=== PATIENT | female | born 1990 | race Caucasian/White ===

== ENCOUNTER 2019-09-20 13:11 | Observation (INO) | payer OTHER, SELFPAY ==
[2019-09-20 13:15] VITALS: BP 117/88; PULSE 96; RESP 16; TEMP 36.4; O2SAT 98; BMI 27.4
--- NOTE | 2019-09-20 13:23 | CT_ITS ---
WS: [id number] CT kidney stone 34227 REASON FOR EXAM: right flank pain, pmh of kidney stones IV CONTRAST ADMINISTERED: None. TOTAL EXAM DLP: 1285.[address] scans at [facility] use at least one of these dose optimization techniques: automat ed exposure control; mA and/or kV adjustment per patient size (includes targeted exams where dose is matched to clinical indication); or iterative reconstruction. FINDINGS: The right kidney shows hydronephrosis and hydroureter ureter that extends down to approxima tely 5 cm above the bladder were 2 stones are evident 1 measured 0.27 cm and the other measures 10.04 mm. The upper abdomen shows normal liver, pancreas, stomach, spleen, adrenal glands, aorta and inferior v liam cava. The left kidney was normal. In the pelvis a cyst is seen on the left ovary measures 2.[address]/CT kidney stone 22022 IMPRESSION: Obstructive uropathy with hydronephrosis hydroureter on the right with 2 large stones seen in the distal right ureter Left ovarian cyst measures 2.47 cm.
--- NOTE | 2019-09-20 13:26 | ED_ITS ---
HPI - Abdominal Pain General: Chief Complaint: Abdominal Pain Stated Complaint: flank pain, n/v Time Seen by Provider: 09/20/19 13:19 History of Present Illness: HPI narrative: Patient is a 29-year-old female who comes to the ED with right flank pain. Patient has had kidney stones in the past and has had tubes tied. Patient says pain feels identical to past kidney stones. Severe right flank pain started around 10 AM this morning. Pain is localized to the right upper lumbar region of back. She rates pain a 10 out of 10. She also had an onset of nausea and vomiting due to the pain. Denies any dysuria, hematuria, constipation, diarrhea, blood in the stool. Associated Symptoms: Reports nausea and vomiting; Denies chills, constipation, diarrhea, dysuria, fever(s), hematochezia and hematuria Related Data: Date of Last Menstrual Period: 09/10/19 Review of Systems 2 Const: Denies: fever, chills or fatigue Eyes: Denies: change in vision or eye discomfort ENMT: Denies: throat pain, painful swallowing, nasal discharge or nasal congestion Card: Denies: chest pain, palpitations, edema, swelling of feet/ankles, shortness of breath on exertion or shortness of breath when lying down Resp: Denies: shortness of breath, productive cough or non-productive cough GI: Reports: nausea and vomiting; Denies: abdominal pain, diarrhea, constipation or blood in stool : Reports: flank pain; Denies: painful urination or blood in urine Musc: Denies: neck pain, back pain or extremity swelling Skin/Breast: Denies: rash or new lesion Neuro: Denies: headache, numbness in extremities or weakness in extremities PFS ED PFSH: Surgical History (Updated 09/20/19 @ 17:34 by Juan Thomas MD) History of tubal ligation Family History (Updated 09/20/19 @ 17:35 by Juan Thomas MD) Denies family history of Anesthesia complication Social History (Updated 09/20/19 @ 17:35 by Juan Thomas MD) Smoking and tobacco status: never smoked Marital status: Number of children: 3 Current occupational status: employed Current occupation: [employer] Female Reproductive History: Date of last menstrual period: 09/10/19 Physical Exam Narrative: EXAM NARRATIVE: Patient is a 29-year-old female that is laying on exam bed monitor the room. She appeared to be in pain and was constantly moving and repositioning herself. Const: COMMON NORMALS: oriented x3 HENMT: COMMON NORMALS: normocephalic HEAD & SCALP: normocephalic MOUTH: oral and palatal mucosa normal THROAT: posterior oropharynx normal and uvula midline Eye: COMMON NORMALS: PERRL PUPIL: Yes PERRL Neck/C-Spine: COMMON NORMALS: supple GENERAL: Yes normal visual inspection Resp: COMMON NORMALS: normal respiratory effort, no retractions, no use of accessory muscles and clear to auscultation bilaterally AUSCULTATION: clear to auscultation bilaterally Cardio: COMMON NORMALS: regular rate, regular rhythm, S1 normal heart sound, S2 normal heart sound, no gallops, no clicks, no murmurs and peripheral pulses 2+ throughout RATE: regular rate RHYTHM: regular rhythm HEART SOUNDS: S1 normal and S2 normal PERIPHERAL PULSES: pulses 2+ throughout GI: COMMON NORMALS: normal to inspection, nondistended, normoactive bowel sounds, soft to palpation and no masses PALPATION: Yes soft and Yes tender (mild tenderness on the RLQ) : BLADDER/KIDNEY EXAM: Yes CVA tenderness on the right (moderate) Back/Pelvis: GENERAL BACK: Yes CVA tenderness Extremity: COMMON NORMALS: normal to inspection and no pedal edema Neuro: COMMON NORMALS: oriented x3 GAIT: Yes normal gait Skin: COMMON NORMALS: no rashes or lesions noted GENERAL SKIN EXAM: no rashes or lesions noted and dry skin Course Reevaluation(s): Reevaluation #1: Patient was given morphine first for pain management and her 9 out of 10 pain remained unchanged. After CT scans and verification that stone is close to the bladder I ordered IV Toradol. After IV Toradol patient's pain is now a 1 out of 10. Consultations: Consultation #1: I spoke with Dr. Thomas about patient's case, and particularly the CT findings of a 10 mm stone, elevated white blood cell count of 15.7 and UA with positive nitrates, 3+ bacteria and 80+ white blood cells. Dr. Thomas sent patient need to be admitted and that I need to keep her n.p.o. while here in the ED. He also stated that he did not come by the ED to see patient today. Vital Signs: Vital signs: Vital Signs Temperature 97.6 F 09/21/19 15:52 Pulse Rate 79 09/21/19 15:52 Respiratory Rate 20 H 09/21/19 15:52 Blood Pressure 110/77 09/21/19 15:52 Pulse Oximetry 100 09/21/19 15:52 MDM - Abdominal Pain MDM Narrative: Medical decision making narrative: Patient is a 29-year-old female who comes to the ED with right flank pain. She has a past medical history of kidney stones. CBC and CMP were unremarkable. UA showed positive nitrates, 80+ white blood cells, 10+ RBCs and 4+ bacteria. CT abdomen to check for kidney stone was performed and an obstructive kidney stone located in the right ureter measuring 10 mm with hydronephrosis of the right kidney. Patient was given a dose of IV Rocephin while here in the ED. Her pain was controlled with Toradol and she was given IV fluids and tamsulosin as well. I contacted Dr. Thomas and he recommended admitting patient, since that size of stone will not pass on its own. Dr. Alonzo handled the admitting orders. Lab Data: Attestation: I reviewed the patient's lab results. Labs: Lab Results 09/20/19 09/20/19 09/20/19 Range/Units 13:30 13:30 14:33 WBC 15.7 H (4.0-10.0) 10^3/ uL RBC 4.66 (4.1-5.3) 10^6/u L Hgb 13.0 (11.5-15.3) g/dL Hct 40.4 (37.0-47.0) % MCV 86.7 (81-99) fL MCH 27.9 L (28.0-34.0) pg MCHC 32.2 (30.0-36.0) g/dL RDW 13.2 (12.1-15.1) % Plt Count 333 (130-400) 10^3/c mm MPV 10.2 (7.4-10.4) fL Neut % (Auto) 81.9 % Lymph % (Auto) 11.7 % [place] % (Auto) 5.5 % Eos % (Auto) 0.3 % Baso % (Auto) 0.3 % Neut # (Auto) 12.9 H (1.8-7.7) 10^3/u L Lymph # (Auto) 1.8 (0.8-4.8) 10^3/u L [place] # (Auto) 0.9 (0.2-0.9) 10^3/u L Eos # (Auto) 0.1 (0.0-0.8) 10^3/u L Baso # (Auto) 0.0 (0.0-0.1) 10^3/u L Nucleated RBC % (a uto) 0 % Nucleated RBCs # 0.0 /100WBC Sodium 138 (136-145) mmol/L Potassium 3.5 (3.5-5.1) mmol/L Chloride 102 (98-107) mmol/L Carbon Dioxide 23 (22-29) mmol/L Anion Gap 16.5 (5-19) BUN 10 (6-20) mg/dL Creatinine 0.7 (0.5-0.9) mg/dL GFR Calculation 99.6 (90-130) mL/min Glucose 134 H (65-115) mg/dL Calculated Osmolal ity 284 L (285-295) mOsm/k g Calcium 8.8 (8.5-10.5) mg/dL Total Bilirubin 0.4 (0.15-1.2) mg/dL AST 14 (0-32) U/L ALT 12 (0-33) U/L Alkaline Phosphata se 74 (35-105) IU/L Total Protein 7.1 (6.6-8.7) g/dL Albumin 4.3 (3.5-5.2) g/dL Globulin 2.8 (1.3-4.6) g/dL HCG, Qual (Negative) Urine Color Yellow (Yellow) Urine Appearance Hazy A (CLEAR) Urine pH 5 (5-7) Ur Specific Gravit y 1.025 (1.005-1.030) Urine Protein 1+ H (Negative) Urine Glucose (UA) Norm (Normal) Urine Ketones 2+ H (Negative) Urine Blood 2+ H (Negative) Urine Nitrate Positive H (Negative) Urine Bilirubin Neg (NEGATIVE) Urine Urobilinogen Norm (Negative) mg/dL Ur Leukocyte Gwen ase 2+ H (Negative) Urine RBC 10-15 H (0-2) /hpf Urine WBC 80-100 H (0-5) /hpf Ur Squamous Epith Cells 0-4 H (0-5) Urine Bacteria 3+ H (NONE) Urine Mucus 1+ 09/20/19 Range/Units 14:33 WBC (4.0-10.0) 10^3/ uL RBC (4.1-5.3) 10^6/u L Hgb (11.5-15.3) g/dL Hct (37.0-47.0) % MCV (81-99) fL MCH (28.0-34.0) pg MCHC (30.0-36.0) g/dL RDW (12.1-15.1) % Plt Count (130-400) 10^3/c mm MPV (7.4-10.4) fL Neut % (Auto) % Lymph % (Auto) % [place] % (Auto) % Eos % (Auto) % Baso % (Auto) % Neut # (Auto) (1.8-7.7) 10^3/u L Lymph # (Auto) (0.8-4.8) 10^3/u L [place] # (Auto) (0.2-0.9) 10^3/u L Eos # (Auto) (0.0-0.8) 10^3/u L Baso # (Auto) (0.0-0.1) 10^3/u L Nucleated RBC % (a uto) % Nucleated RBCs # /100WBC Sodium (136-145) mmol/L Potassium (3.5-5.1) mmol/L Chloride (98-107) mmol/L Carbon Dioxide (22-29) mmol/L Anion Gap (5-19) BUN (6-20) mg/dL Creatinine (0.5-0.9) mg/dL GFR Calculation (90-130) mL/min Glucose (65-115) mg/dL Calculated Osmolal ity (285-295) mOsm/k g Calcium (8.5-10.5) mg/dL Total Bilirubin (0.15-1.2) mg/dL AST (0-32) U/L ALT (0-33) U/L Alkaline Phosphata se (35-105) IU/L Total Protein (6.6-8.7) g/dL Albumin (3.5-5.2) g/dL Globulin (1.3-4.6) g/dL HCG, Qual Negative (Negative) Urine Color (Yellow) Urine Appearance (CLEAR) Urine pH (5-7) Ur Specific Gravit y (1.005-1.030) Urine Protein (Negative) Urine Glucose (UA) (Normal) Urine Ketones (Negative) Urine Blood (Negative) Urine Nitrate (Negative) Urine Bilirubin (NEGATIVE) Urine Urobilinogen (Negative) mg/dL Ur Leukocyte Gwen ase (Negative) Urine RBC (0-2) /hpf Urine WBC (0-5) /hpf Ur Squamous Epith Cells (0-5) Urine Bacteria (NONE) Urine Mucus Imaging Data ^: CT Abd/Pel: Attestation: I personally reviewed and interpreted this imaging study as follows: Radiologist's impression: [place] [address] CT Scan Report Signed Patient: Maryann Washburn Unit #: [id number] : 1990 Age/Sex: 29 / F ADM Date: 09/20/19 Loc: ER Room/Bed: Attending Dr: Ordering Provider/Ordering MD: Fer Virgen Date of Service: 09/20/19 Procedure(s): CT kidney stone 51078 Accession Number(s): [id number] Report Number: [id number] WS: [id number] CT kidney stone [id number] REASON FOR EXAM: right flank pain, pmh of kidney stones IV CONTRAST ADMINISTERED: None. TOTAL EXAM DLP: 1285.[address] scans at [facility] use at least one of these dose optimization techniques: automated exposure control; mA and/or kV adjustment per patient size (includes targeted exams where dose is matched to clinical indication); or iterative reconstruction. FINDINGS: The right kidney shows hydronephrosis and hydroureter ureter that extends down to approximately 5 cm above the bladder were 2 stones are evident 1 measured 0.27 cm and the other measures 10.04 mm. The upper abdomen shows normal liver, pancreas, stomach, spleen, adrenal glands, aorta and inferior vena cava. The left kidney was normal. In the pelvis a cyst is seen on the left ovary measures 2.[address]/CT kidney stone [id number] IMPRESSION: Obstructive uropathy with hydronephrosis hydroureter on the right with 2 large stones seen in the distal right ureter Left ovarian cyst measures 2.47 cm. Dictated By: Layton Vicente DO Signed By: Layton Vicente DO Signed Date/Time: 09/20/19 1413 DD/ 1406 Discharge Plan Discharge Patient Disposition: Admitted As Inpatient Admit Provider: Juan Thomas Condition: Stable Discharge Orders: Discharge Order (Routine); Ordered 09/21/19 Ordered By: Juan Thomas Referrals: Juan Thomas MD [Physician] - 10/01/19 7:30 am (Please come to [facility] main admissions to have a KUB done at 0730 after you will go over for your appointment with Dr. Thomas. Cystoscopy, ureteral stent removal KUB first) Patient Instructions: Ciprofloxacin (By mouth), Hydrocodone (By mouth), Kidney Stones (DC), Lithotripsy for Removal of Kidney Stones (DC), Renal Colic (GEN), Ureteral Stent Placement (DC), Hydronephrosis (DC) Additional Instructions: The stones were easily accessed and fragmented with laser lithotripsy. The right distal ureter where the stones were located was quite edematous and for that reason a stent was left indwelling. It should be safe to remove the stent late next week after healing. Typical symptoms related to the stent include urgency, frequency, urgency, right flank pain with urination, blood in the urine. These are common and are not dangerous. [id number] PYRIDIUM/Azo-Standard may be helpful if you have irritative symptoms related to the stent. Discharge Date/Time: 09/20/19 16:39 Coding Level of Care Code ED Adobe Architect for Chg Fwd Exam Comprehensive
[2019-09-20 13:39] LABS: Basophils % 0.3 %; Eosinophils # 0.1 10^3/uL (0.0-0.8); Eosinophils % 0.3 %; Hematocrit 40.4 % (37.0-47.0); Lymphocytes # 1.8 10^3/uL (0.8-4.8); Lymphocytes % 11.7 %; Mean Corpuscular HGB Conc 32.2 g/dL (30.0-36.0); Mean Corpuscular Hemoglobin 27.9 pg (28.0-34.0); Mean Corpuscular Volume 86.7 fL (81-99); Mean Platelet Volume 10.2 fL (7.4-10.4); Monocytes # 0.9 10^3/uL (0.2-0.9); Monocytes % 5.5 %; Neutrophils # 12.9 10^3/uL (1.8-7.7); Neutrophils % 81.9 %; Nucleated Red Blood Cells % 0 %; Platelet Count 333 10^3/cmm (130-400); Red Blood Count 4.66 10^6/uL (4.1-5.3); Red Cell Distribution Width 13.2 % (12.1-15.1); White Blood Count 15.7 10^3/uL (4.0-10.0)
[2019-09-20 13:41] VITALS: RESP 16
[2019-09-20] MEDS: sodium chloride 0.9% 1,000 ML 999 ML IV ×2 (13:41→15:16)
[2019-09-20] MEDS: morphine 4 mg/mL SDV 1 mL IVP (13:41)
[2019-09-20] MEDS: ondansetron 2 mg/ML SDV 2 mL 4 MG IVP ×2 (13:41→18:22)
[2019-09-20 13:54] LABS: Alanine Aminotransferase 12 U/L (0-33); Albumin Level 4.3 g/dL (3.5-5.2); Alkaline Phosphatase 74 IU/L (35-105); Anion Gap 16.5 (5-19); Aspartate Amino Transferase 14 U/L (0-32); Blood Urea Nitrogen 10 mg/dL (6-20); Calcium 8.8 mg/dL (8.5-10.5); Carbon Dioxide 23 mmol/L (22-29); Chloride 102 mmol/L (98-107); Globulin 2.8 g/dL (1.3-4.6); Glomerular Filtration Rate 99.6 mL/min (90-130); Glucose 134 mg/dL (65-115); Osmolality Calculated 284 mOsm/kg (285-295); Potassium 3.5 mmol/L (3.5-5.1); Sodium 138 mmol/L (136-145); Total Bilirubin 0.4 mg/dL (0.15-1.2); Total Protein 7.1 g/dL (6.6-8.7)
[2019-09-20] MEDS: ketorolac 30 mg/mL INJ IVP (14:16)
[2019-09-20] MEDS: tamsulosin 0.4 mg Capsule PO (14:16)
[2019-09-20 14:49] LABS: Glucose Urine UA Norm (Normal); Protein Urine 1+ (Negative); Specific Gravity, Urine 1.025 (1.005-1.030); Urine Appearance Hazy (CLEAR); Urine Color Yellow (Yellow); pH Urine 5 (5-7)
[2019-09-20 14:50] LABS: Bilirubin Urine Neg (NEGATIVE); Blood Urine 2+ (Negative); Ketones Urine 2+ (Negative); Leukocyte Esterase Urine 2+ (Negative); Nitrate Urine Positive (Negative); Urobilinogen Urine Norm (Negative)
[2019-09-20 14:52] LABS: Add Urine Culture? Yes; Bacteria Urine 3+; Mucus Urine 1+; Squamous Epithelial Cell Urine 0-4 (0-5); WBC Urine 80-100 /hpf (0-5)
[2019-09-20 15:00] LABS: HCG Qualitative Urine. Negative (Negative)
[2019-09-20] MEDS: cefTRIAXone 2,000 MG in sodium chloride 0.9% (plus) 50 ML 100 MG IV (15:16)
[2019-09-20 16:30] VITALS: BP 131/80; PULSE 103; RESP 20; TEMP 36.7; O2SAT 98
--- NOTE | 2019-09-20 16:31 | PM.HP ---
Providers/Chief Complaint Admitting Physician: Juan Thomas MD Primary Care Provider: Williams Choi MD Chief Complaint: flank pain, n/v History of Present Illness Maryann Washburn is a 29 year old female evaluated for the first time today after admission through the emergency department for severe right hydroureteronephrosis secondary to 2 large stones in her right distal ureter. Symptoms described below remind her of her previous stone episode. Acute pain in the right flank radiating down to the right lower quadrant was described as severe (10 out of 10) and beginning this morning. Could not find a comfortable position due to the pain. Associated with nausea and vomiting. Denied frequency urgency blood in the urine or UTI symptoms. No fever or chills. Work-up: UA showed evidence of UTI with 80-100 white cells, nitrite positive urine and bacteriuria. CT scan: 11 mm stone in the right distal ureter with a slightly smaller stone just proximal to that. Severely dilated ureter and pyelocalyceal system. This is a dramatic change from her previous CT scan in 2007 that showed neither stones or hydronephrosis. WBC: 15.7, creatinine 0.7. Normal liver functions. Despite the severity of the pain aggressive pain management control the symptoms. Concern for risk of obstructive pyelonephritis development led to the admission, IV antibiotics, and consideration for intervention sooner than later. In the absence of clinical sepsis currently I think it is reasonable to treat her infection and plan for cystoscopy and attempt at stone removal tomorrow after initiation of antibiotics. Can consider stent placement emergently for clinical deterioration. Review of Systems Const: Reports: malaise; Denies: fever or chills Eyes: Denies: change in vision Card: Denies: chest pain or palpitations Resp: Denies: shortness of breath, productive cough or non-productive cough GI: Reports: abdominal pain, nausea and vomiting; Denies: change in bowel habits : Reports: flank pain; Denies: difficulty urinating, painful urination, urinary frequency, urinary urgency or blood in urine Musc: Reports: back pain; Denies: neck pain Skin/Breast: Denies: rash or itching Neuro: Denies: headache, confusion or slurred speech Psych: Denies: anxiety Duc/Lymph: Denies: easy bruising, easy bleeding or enlarged lymph nodes Medications/Allergies Home Medications Medication Instructions Recorded Confirmed Last Taken Type No Known Home Medications 09/20/19 09/20/19 Unknown History Allergies Allergy/AdvReac Type Severity Reaction Status Date / Time No Known Allergies Allergy Verified 09/20/19 13:18 PFSH Acute PFSH: Surgical History (Updated 09/20/19 @ 17:34 by Juan Thomas MD) History of tubal ligation Family History (Updated 09/20/19 @ 17:35 by Juan Thomas MD) Denies family history of Anesthesia complication Social History (Updated 09/20/19 @ 17:35 by Juan Thomas MD) Smoking and tobacco status: never smoked Substance/Drug Use: never Marital status: Number of children: 3 Current occupational status: employed Current occupation: [employer] Female Reproductive History: Date of last menstrual period: 09/10/19 Vitals/I&O/Wt Last Vital Signs Temp 97.6 F 09/20/19 13:15 Pulse 96 09/20/19 13:15 Resp 16 09/20/19 13:41 BP 117/88 09/20/19 13:15 Pulse Ox 98 09/20/19 13:15 Weight last 48 hrs Weight 170 lb Physical Exam Const: COMMON NORMALS: no apparent distress, alert and well nourished GENERAL APPEARANCE: well kempt and well developed ORIENTATION/CONSCIOUSNESS: not confused HENMT: COMMON NORMALS: normocephalic and head/scalp atraumatic Eye: COMMON NORMALS: conjunctivae normal and no scleral icterus Neck/C-Spine: COMMON NORMALS: full ROM GENERAL: Yes normal visual inspection Resp: COMMON NORMALS: normal respiratory effort EFFORT & INSPECTION: No labored and No actively coughing AUSCULTATION: clear to auscultation bilaterally Cardio: COMMON NORMALS: regular rate, regular rhythm and no murmurs OTHER: No peripheral edema : OTHER: Bladder not distended Extremity: COMMON NORMALS: no clubbing, cyanosis or edema Neuro: COMMON NORMALS: no focal motor deficits SENSORIUM/ORIENTATION: Yes alert Psych: COMMON NORMALS: mental status grossly normal APPEARANCE: Yes grossly normal and Yes well kempt ATTITUDE: Yes calm and Yes engaged Skin: COMMON NORMALS: no rashes or lesions noted and no jaundice Data : 09/20/19 13:30 09/20/19 13:30 A&P Assessment and plan (1) Right distal ureteral calculus: Status: Acute (2) Hydronephrosis of right kidney: Status: Acute Attestations Medical Necessity Statement*: Uncontrolled pain, concern for potential obstructive pyelonephritis, large right distal ureteral stones unlikely to pass with evidence of failed conservative course given the degree of obstruction. Surgical intervention will be required Coding Level of Care Code Acute Manager Recruiting for [facility] Fwd Diagnoses Right distal ureteral calculus N20.1 Hydronephrosis of right kidney N13.30
[2019-09-20 16:38] VITALS: BP 148/79; PULSE 113; RESP 16; O2SAT 99
--- NOTE | 2019-09-20 16:41 | PC.NURSE ---
patient arrived on unit. Dr Thomas notified.
[2019-09-20] MEDS: sodium chlor 0.45% +KCl 20 mEq 20 MEQ/1,000 ML BAG 100 MEQ IV (18:21)
[2019-09-20 19:59] VITALS: BP 128/85; PULSE 111; RESP 16; TEMP 36.7; O2SAT 100
[2019-09-20 23:54] VITALS: BP 99/66; PULSE 96; RESP 16; TEMP 36.6; O2SAT 100
[2019-09-21] VITALS (16 sets, daily range): BP systolic 99–124; BP diastolic 54–94; PULSE 79–115; RESP 12–22; TEMP 36.2–36.8; O2SAT 97–100
--- NOTE | 2019-09-21 | SCC_ITS ---
Procedure Done: Cystoscopy, right retrograde ureteropyelogram Ureteroscopy, laser lithotripsy, stent (4.7 Japanese by 28 cm double-pigtail without string) 19.9 seconds of fluoroscopic guidance, for a cumulative dose of 4.31 mGy, was provided to Dr. Thomas by the radiology department. C-arm images of the abdomen were saved for the patient's permanent record. [facility]
--- NOTE | 2019-09-21 | SC_ITS ---
WS: [id number] INTRAOPERATIVE TECHNIQUE: 2 Spot fluoroscopic images for intraoperative purposes. FLUOROSCOPY TIME: 18.9 seconds CLINICAL INFORMATION: STENT, STONE REMOVAL COMPARISON: None. FINDINGS: Images obtained for intraoperative purposes. Right proximal double-J ureteral stent visualized. Dista l stent not included. SC/C-arm FL for Urology IMPRESSION: Images obtained for intraoperative purposes.
[2019-09-21] MEDS: sodium chlor 0.45% +KCl 20 mEq 20 MEQ/1,000 ML BAG 100 MEQ IV (01:06)
[2019-09-21] MEDS: cefTRIAXone 1,000 MG in sodium chloride 0.9% (plus) 50 ML 100 MG IV ×2 (03:59→15:25)
--- NOTE | 2019-09-21 06:00 | XR_ITS ---
WS: [id number] ABDOMEN: SUPINE FILM HISTORY: Right distal ureteral stones COMPARISON: 09/20/2019 and 07/23/2008 Normal bowel gas pattern. No osseous abnormality other than RIGHT sacroiliitis. Right kidney: No RIGHT renal calcifications. Cluster of calcifications in the distal RIGHT ureter. Th e entire cluster measures 2.2 x 0.7 cm. This is several adjacent calcifications in the distal ureter with no progression since 09/20/2019. Left kidney: No renal or ureteral stone identified. XR/XR KUB [id number] IMPRESSION: Cluster of calcifications in the distal RIGHT ureter measures 2.2 x 0.7 cm. No inferior migration.
[2019-09-21 08:00] LABS: Anion Gap 15.7 (5-19); Basophils % 0.3 %; Blood Urea Nitrogen 3 mg/dL (6-20); Calcium 8.3 mg/dL (8.5-10.5); Carbon Dioxide 22 mmol/L (22-29); Chloride 103 mmol/L (98-107); Eosinophils # 0.1 10^3/uL (0.0-0.8); Eosinophils % 0.6 %; Glomerular Filtration Rate 146.9 mL/min (90-130); Glucose 85 mg/dL (65-115); Hematocrit 36.2 % (37.0-47.0); Hemoglobin 11.6 g/dL (11.5-15.3); Lymphocytes # 1.9 10^3/uL (0.8-4.8); Lymphocytes % 21.6 %; Mean Corpuscular Volume 87.2 fL (81-99); Mean Platelet Volume 10.6 fL (7.4-10.4); Monocytes # 0.6 10^3/uL (0.2-0.9); Monocytes % 6.6 %; Neutrophils # 6.4 10^3/uL (1.8-7.7); Neutrophils % 70.7 %; Nucleated Red Blood Cells % 0 %; Osmolality Calculated 279 mOsm/kg (285-295); Platelet Count 271 10^3/cmm (130-400); Potassium 3.7 mmol/L (3.5-5.1); Red Blood Count 4.15 10^6/uL (4.1-5.3); Red Cell Distribution Width 13.1 % (12.1-15.1); Sodium 137 mmol/L (136-145)
--- NOTE | 2019-09-21 10:12 | PC.CHAP ---
Pastoral Care Encounter/Spiritual Assessment Type of Contact [] Declined screening technician visit [] Patient/Family/Request visit [] Outpatient visit [] Follow-up visit [] Physician referral [] Code/Alert [x] Routine visit [] Staff referral [] Actively dying [] Patient sleeping [] Family support [] [] Out of room [] Palliative care [] [] Receiving care in room [] Pre-surgical visit [] Trauma [] Long length of stay [] ICU visit [] Other: Relational/Emotional Strength [] Patient feels connected with others/family/visitors/staff [] Distress [] Loneliness/isolation [] Abandonment Spirituality of Patient [] Person of Opal [] Attends Gnosticism of their Opal [] Believes in Prayer [] Reads Bible or Confucianism materials [] There are Spiritual issues to be addressed Toe Stripper Interventions [x] Prayer [] Active listening [] Non-anxious presence [] Spiritual/emotional support [] Crisis/trauma care [] Spiritual counseling [] Bereavement support [] Provided bereavement packet [] Provided Bible/devotional materials [] Provided toy/stuffed animal, coloring book to patient or family member [] Provided Communion [] Anointing/[place] [] Salvation [x] Completed spiritual assessment [] Other: Impact on Illness or Injury [] Angry [] Fearful [] Anxious [] Often cries [] Exhaustion [] Unable to work [] Unable to attend voodoo [] Unable to walk/stand [] Unable to read [] Unable to drive [] Unable to eat/drink [] Unable to sleep [] Unable to be with family [] Patient intubated [] Other: Summary Patient feeling better Time spent with patient 5 min
--- NOTE | 2019-09-21 11:52 | P.ANESASSM_ITS ---
Pre-Anesthetic Assessment Pre-Anesthetic Assessment: Height/Weight: Height 1.68 m Weight 77.111 kg Temp Pulse Resp BP Pulse Ox 98.3 F 92 18 123/94 100 09/21/19 11:45 09/21/19 11:45 09/21/19 11:45 09/21/19 11:45 09/21/19 11:45 Preop Diagnosis: kidney stones Proposed Procedure: Operation Date: 09/21/19 12:00 Proposed Procedures p Cystoscopy, Right Retrograde Ureteroscopy, Laser, Stent(Right) - Juan Thomas MD s Laser Lithotripsy(Right) - Juan Thomas MD s Retrograde Pyelogram(Right) - Juan Thomas MD s Ureteral Stent Placement(Right) - Juan Thomas MD Familial anesthetic complications: none Last intake: Intake Last Liquid Date 09/21/19 Last Liquid Time 07:00 Last Solid Date 09/19/19 Last Solid Time 20:00 Social: Social History: No alcohol and No tobacco Exam: Pre-Anes Outpt Exam: alert, oriented x 3, clear to auscultation bilaterally and regular rate & rhythm Airway: Cervical ROM: WNL MP: 2 Dentition: Full Pulmonary: Pulmonary: None reported CV/HEM: CV/HEM: None reported : : None reported Hepatic: Hepatic: None reported GI: GI: None reported Metabolic: Metabolic: None reported Musc/skel: Musc/skel: None reported Neuropsych: Neuropsych: None reported Anesthetic Plan: ASA status: 1 Anesthesia: General Risk of > 500 ml blood loss (7ml/kg in children): No Meds/Allergies Current Medications: Current Medications Generic Name Dose Route Start Last Admin Trade Name Jac PRN Reason Stop Dose Admin Sodium Chloride 1,000 mls @ 150 m ls/hr 09/20/19 16:41 09/21/19 09:42 Sodium Chloride 0.9% IV Not Given .Q6H40M RUPERTO Ceftriaxone Sodium 1,000 mg/ 50 mls @ 100 mls/ hr 09/21/19 04:00 09/21/19 09:36 Sodium Chloride IV Infused Q12H RUPERTO Infusion Protocol Potassium Chloride /Sodium Chloride 20 meq in 1,000 m ls @ 100 mls/hr 09/20/19 17:30 09/21/19 04:30 Sodium Chlor 0.4 5% +Kcl 20 Meq IV 100 mls/hr .Q10H RUPERTO Infusion PFSH Anesthesia PFSH: Surgical History (Updated 09/20/19 @ 17:34 by Juan Thomas MD) History of tubal ligation Family History (Updated 09/20/19 @ 17:35 by Juan Thomas MD) Denies family history of Anesthesia complication Social History (Updated 09/20/19 @ 17:35 by Juan Thomas MD) Smoking and tobacco status: never smoked Marital status: Number of children: 3 Current occupational status: employed Current occupation: [employer] Female Reproductive History: Date of last menstrual period: 09/10/19 Data Anesthesia CBC & Chem 7: 09/21/19 07:22 09/21/19 07:22 Other Labs: Laboratory Results - last 48 hr 09/20/19 09/20/19 09/20/19 13:30 13:30 14:33 WBC 15.7 H RBC 4.66 Hgb 13.0 Hct 40.4 MCV 86.7 MCH 27.9 L MCHC 32.2 RDW 13.2 Plt Count 333 MPV 10.2 Neut % (Auto) 81.9 Lymph % (Auto) 11.7 [place] % (Auto) 5.5 Eos % (Auto) 0.3 Baso % (Auto) 0.3 Neut # (Auto) 12.9 H Lymph # (Auto) 1.8 [place] # (Auto) 0.9 Eos # (Auto) 0.1 Baso # (Auto) 0.0 Nucleated RBC % (auto) 0 Nucleated RBCs # 0.0 Sodium 138 Potassium 3.5 Chloride 102 Carbon Dioxide 23 Anion Gap 16.5 BUN 10 Creatinine 0.7 GFR Calculation 99.6 Glucose 134 H Calculated Osmolality 284 L Calcium 8.8 Total Bilirubin 0.4 AST 14 ALT 12 Alkaline Phosphatase 74 Total Protein 7.1 Albumin 4.3 Globulin 2.8 HCG, Qual Urine Color Yellow Urine Appearance Hazy A Urine pH 5 Ur Specific [place] 1.025 Urine Protein 1+ H Urine Glucose (UA) Norm Urine Ketones 2+ H Urine Blood 2+ H Urine Nitrate Positive H Urine Bilirubin Neg Urine Urobilinogen Norm Ur Leukocyte Esterase 2+ H Urine RBC 10-15 H Urine WBC 80-100 H Ur Squamous Epith Cells 0-4 H Urine Bacteria 3+ H Urine Mucus 1+ 09/20/19 09/21/19 09/21/19 14:33 07:22 07:22 WBC 9.0 RBC 4.15 Hgb 11.6 Hct 36.2 L MCV 87.2 MCH 28.0 MCHC 32.0 RDW 13.1 Plt Count 271 MPV 10.6 H Neut % (Auto) 70.7 Lymph % (Auto) 21.6 [place] % (Auto) 6.6 Eos % (Auto) 0.6 Baso % (Auto) 0.3 Neut # (Auto) 6.4 Lymph # (Auto) 1.9 [place] # (Auto) 0.6 Eos # (Auto) 0.1 Baso # (Auto) 0.0 Nucleated RBC % (auto) 0 Nucleated RBCs # 0.0 Sodium 137 Potassium 3.7 Chloride 103 Carbon Dioxide 22 Anion Gap 15.7 BUN 3 L Creatinine 0.5 GFR Calculation 146.9 H Glucose 85 Calculated Osmolality 279 L Calcium 8.3 L Total Bilirubin AST ALT Alkaline Phosphatase Total Protein Albumin Globulin HCG, Qual Negative Urine Color Urine Appearance Urine pH Ur Specific [place] Urine Protein Urine Glucose (UA) Urine Ketones Urine Blood Urine Nitrate Urine Bilirubin Urine Urobilinogen Ur Leukocyte Esterase Urine RBC Urine WBC Ur Squamous Epith Cells Urine Bacteria Urine Mucus Micro: Microbiology 09/20/19 14:33 Urine Culture - Preliminary Urine,Clean Catch Gram Negative Rods Cardiac Studies: No Data to Display
--- NOTE | 2019-09-21 11:58 | PM.OP ---
Operative Report Date of procedure: September 21, 2019 Pre-op Diagnosis: Large right distal ureteral stones with obstruction Post-op diagnosis: same Procedure Done: Cystoscopy, right retrograde ureteropyelogram Ureteroscopy, laser lithotripsy, stent (4.7 Maldivian by 28 cm double-pigtail without string) Specimens removed/disposition: Stone fragments Pathology: Stone fragments Surgeon: William Anesthesia: General Estimated blood loss: Minimal Urine output: Not measured Complications: None Findings: Stones in the expected position. Accessed with ureteroscopy and fragmented with laser lithotripsy. Fragments removed. Stent left indwelling. Condition: stable Disposition: PACU Brief History: Maryann is a very pleasant 29-year-old white female admitted last night through the emergency department for concern of obstructing right distal ureteral stones of longstanding nature based on the degree of hydronephrosis and also significant pyuria although no evidence of sepsis. Because of the concern of potential progression to obstructive pyelonephritis/sepsis it was decided to admit her, treat with antibiotics, and move toward either stenting or definitive stone treatment if possible today. She has remained afebrile since admission. She has received 2 doses of antibiotics. White count this morning is 9 and there is no evidence of hemodynamic instability. The plan was to go after the stones but it a very minimum obtain access and stenting. Procedure: After routine preoperative evaluation examination obtaining of informed consent she was taken to the operating suite on 09/21/2019 where general anesthesia was administered without difficulty after appropriate timeout was performed, SCDs confirmed to be functioning, preoperative therapeutic antibiotics administered, beta-humphrey protocol confirmed. Prepped and draped in usual sterile fashion in dorsolithotomy position pain careful attention to avoiding pressure points. 21 Maldivian cystoscope with 30 degree lens was introduced into the urethral meatus and advanced into the bladder under videoscopy. Bladder was systematically examined with both 30 and 70 degree lens. No stones were seen in the bladder. 8 Maldivian cone-tipped catheter intubate into the right ureteral orifice for right retrograde ureteropyelogram confirming normal distal ureter, the 2 large stones identified in the expected position with significant proximal ureteral dilation beyond the stones. Flexible tip guidewire was then advanced up the right ureter bypassing the stones. The ureter distal to the stones was then dilated with a 15 Maldivian 4 cm balloon with no waist at 4 amna of pressure. The balloon was removed the wire secured to the drapes as a safety wire and an offset semirigid ureteroscope was advanced next to the wire up the right ureter where the stones were encountered in the expected position and fragmented with a 550 ?m homing laser fiber into small enough pieces that were then easily removed with grasping forceps and parachute basket. Final passage of the scope showed no additional stone fragments. The ureter was edematous at the site where the stones were located and for that reason a stent was left indwelling. A 4.7 Maldivian by 28 cm double-pigtail stent was advanced over the guidewire through the cystoscope into appropriate position as confirmed via fluoroscopy. The bladder was drained. The pieces that of been dropped into the bladder were then flushed out of the bladder. On final inspection the stent was confirmed to be draining, no significant fragments remained in the bladder, and the procedure completed. Tolerated the procedure well without complications and was awakened in the operating room and returned to the care of in stable condition. PLANS: 1. Discharge from outpatient surgery today 2. Follow-up late next week for cystoscopy and stent removal.
[2019-09-21] MEDS: sodium chloride 0.9% 1,000 ML 30 ML IV (11:59)
[2019-09-21] MEDS: iohexol 300 mg/mL 50 mL Btl (OR ONLY) XX (12:48)
--- NOTE | 2019-09-21 13:09 | SUR.PHASEI ---
1305 PATIENT TO PACU AT THIS TIME FROM OR. RR EVEN AND UNLABORED. ORAL AIRWAY IN PLACE. SPO2 100% ON SIMPLE MASK AT 8L. PATIENT UNRESPONSIVE TO VERBAL STIMULI, PROTECTING AIRWAY.
--- NOTE | 2019-09-21 13:11 | SUR.PHASEI ---
1311 ORAL AIRWAY REMOVED AT THIS TIME. SPO2 100% ON SIMPLE MASK AT 8L.
--- NOTE | 2019-09-21 13:14 | PM.DCS ---
Discharge Providers Date of Admission: 09/20/19 15:29 Date of Discharge: September 21, 2019 Attending Provider at Admission: Juan Thomas MD Attending Provider at Discharge: Juan Thomas MD Primary Care Provider: Williams Choi MD Diagnoses at Discharge Discharge Diagnosis (1) Right distal ureteral calculus: Status: Acute Problem details: 2 large stones with chronic obstruction treated with endoscopy and laser lithotripsy temporary stent 09/21/2011. (2) Hydronephrosis of right kidney: Status: Acute Problem details: Secondary to large right distal ureteral stones. Reason for Visit Reason for Visit: Reason For Visit: flank pain, n/v Hospital Course Hospital Course: Admitted on 09/20/2019 with refractory pain and concern for possible UTI related to obstructing to moderate to large size right distal ureteral stones. She was treated with antibiotics x2 doses and then plan was to stent her or if possible treat the stones with endoscopic laser lithotripsy on 09/21/2019. Taken to the operating room in the afternoon of 09/21/2019 where laser lithotripsy was performed and all the stone fragments were removed. A temporary indwelling stent was left in place at the completion of the procedure (4.7 Chinese by 28 cm double-pigtail stent). She was sent back to the floor for recovery prior to discharge and did well. Discharged in stable condition with plans for follow-up on 10/01/2019 for cystoscopy and stent removal. Physical Exam Const: COMMON NORMALS: no apparent distress, alert and well nourished GENERAL APPEARANCE: well kempt and well developed ORIENTATION/CONSCIOUSNESS: not confused Resp: COMMON NORMALS: normal respiratory effort EFFORT & INSPECTION: No labored and No actively coughing Neuro: SENSORIUM/ORIENTATION: Yes alert Psych: COMMON NORMALS: mental status grossly normal APPEARANCE: Yes grossly normal and Yes well kempt ATTITUDE: Yes calm and Yes engaged Discharge Data Data Completed and Pending: Completed Studies During Hospitalization Category Date Time Status CT kidney stone 7 4176 Urgent Cat Scan 09/20/19 13:23 Completed XR KUB 13545 Rout ine Exams 09/21/19 06:00 Completed Pending at discharge Category Date Time Status Stone Analysis Ro utine Lab 09/21/19 12:52 Ordered Urine Culture Sta t Lab 09/20/19 14:33 Results Pathology: Surgic al [PTH] Routine Pth 09/21/19 12:54 Ordered Labs from last 24 hours 09/21/19 09/21/19 09/20/19 07:22 07:22 14:33 WBC 9.0 RBC 4.15 Hgb 11.6 Hct 36.2 L MCV 87.2 MCH 28.0 MCHC 32.0 RDW 13.1 Plt Count 271 MPV 10.6 H Neut % (Auto) 70.7 Lymph % (Auto) 21.6 [place] % (Auto) 6.6 Eos % (Auto) 0.6 Baso % (Auto) 0.3 Neut # (Auto) 6.4 Lymph # (Auto) 1.9 [place] # (Auto) 0.6 Eos # (Auto) 0.1 Baso # (Auto) 0.0 Nucleated RBC % (a uto) 0 Nucleated RBCs # 0.0 Sodium 137 Potassium 3.7 Chloride 103 Carbon Dioxide 22 Anion Gap 15.7 BUN 3 L Creatinine 0.5 GFR Calculation 146.9 H Glucose 85 Calculated Osmolal ity 279 L Calcium 8.3 L Total Bilirubin AST ALT Alkaline Phosphata se Total Protein Albumin Globulin HCG, Qual Negative Urine Color Urine Appearance Urine pH Ur Specific [place] y Urine Protein Urine Glucose (UA) Urine Ketones Urine Blood Urine Nitrate Urine Bilirubin Urine Urobilinogen Ur Leukocyte [place] Urine RBC Urine WBC Ur Squamous Epith Cells Urine Bacteria Urine Mucus 09/20/19 09/20/19 09/20/19 14:33 13:30 13:30 WBC 15.7 H RBC 4.66 Hgb 13.0 Hct 40.4 MCV 86.7 MCH 27.9 L MCHC 32.2 RDW 13.2 Plt Count 333 MPV 10.2 Neut % (Auto) 81.9 Lymph % (Auto) 11.7 [place] % (Auto) 5.5 Eos % (Auto) 0.3 Baso % (Auto) 0.3 Neut # (Auto) 12.9 H Lymph # (Auto) 1.8 [place] # (Auto) 0.9 Eos # (Auto) 0.1 Baso # (Auto) 0.0 Nucleated RBC % (a uto) 0 Nucleated RBCs # 0.0 Sodium 138 Potassium 3.5 Chloride 102 Carbon Dioxide 23 Anion Gap 16.5 BUN 10 Creatinine 0.7 GFR Calculation 99.6 Glucose 134 H Calculated Osmolal ity 284 L Calcium 8.8 Total Bilirubin 0.4 AST 14 ALT 12 Alkaline Phosphata se 74 Total Protein 7.1 Albumin 4.3 Globulin 2.8 HCG, Qual Urine Color Yellow Urine Appearance Hazy A Urine pH 5 Ur Specific [place] 1.025 Urine Protein 1+ H Urine Glucose (UA) Norm Urine Ketones 2+ H Urine Blood 2+ H Urine Nitrate Positive H Urine Bilirubin Neg Urine Urobilinogen Norm Ur Leukocyte [place] 2+ H Urine RBC 10-15 H Urine WBC 80-100 H Ur Squamous Epith Cells 0-4 H Urine Bacteria 3+ H Urine Mucus 1+ Vitals: Last Vital Signs Temp 97.3 F L 09/21/19 13:07 Pulse 113 H 09/21/19 13:10 Resp 17 09/21/19 13:10 BP 99/58 09/21/19 13:10 Pulse Ox 100 09/21/19 13:10 Discharge Plan Discharge Patient Disposition: Home, Self-Care Condition: Stable Prescriptions: [place] 5-325 mg tablet 1 tab PO Q8H PRN (Reason: pain) Qty: 14 RF: 0 No Action No Known Home Medications RF: 0 Discharge Orders: Discharge Order (Routine); Ordered 09/21/19 Ordered By: Juan Thomas Referrals: Juan Thomas MD [Physician] - 10/01/19 7:30 am (Please come [place] [facility] [place] KUB done at 0730 after you will go over for your appointment with Dr. Thomas. Cystoscopy, ureteral stent removal KUB first) Activity Restrictions/Additional Instructions: The stones were easily accessed and fragmented with laser lithotripsy. The right distal ureter where the stones were located was quite edematous and for that reason a stent was left indwelling. It should be safe to remove the stent late next week after healing. Typical symptoms related to the stent include urgency, frequency, urgency, right flank pain with urination, blood in the urine. These are common and are not dangerous. [id number] PYRIDIUM/Azo-Standard may be helpful if you have irritative symptoms related to the stent. Discharge Attestations Time Spent in Discharge Care*: less than 30 min Quality Metrics Clinical Quality Measures During this hospital stay, did patient experience: None Coding Level of Care Code Acute Scalder for g Fwd Diagnoses Right distal ureteral calculus N20.1 Hydronephrosis of right kidney N13.30
--- NOTE | 2019-09-21 13:45 | PC.NURSE ---
PATIENT BACK FROM PROCEDURE ; PATIENT DENIES ANY PAIN AT THIS TIME ; VSS
--- NOTE | 2019-09-21 13:49 | SUR.PHASEI ---
3894 PATIENT TO MED SURG. PATIENT A/OX3. DENIES PAIN. PATIENT AMBULATORY TO BATHROOM WITH STEADY GAIT.
--- NOTE | 2019-09-21 16:26 | PC.NURSE ---
PATIENT GIVEN DISCHARGE INSTRUCTIONS AND VERBALIZED UNDERSTANDING ; VSS ; PATIENT DENIES ANY PAIN OTHER THAN GENERAL DISCOMFORT FROM PROCEDURE ; IV REMOVED AND PRESSURE DRESSING APPLIED WITH NO BLEEDING NOTED ; PATIENT TO POV VIA WHEELCHAIR
[2019-09-26 20:51] LABS: Stone Source RIGHT URETER
== END 2019-09-21 16:29 | disposition home or self-care (01) ==
LOC: ER 15:50 → MEDSURG 15:56
PROVIDERS: Emergency Medicine; Admitting Provider Urology; Emergency Provider Physician Assistant; PCP Family Medicine; Visit Provider Urology
PROC: 0TJB8ZZ Inspection of Bladder, Via Natural or Artificial Opening Endoscopic (ICD-10-PCS; CPT 52000; principal; 2019-09-21 12:00)
PROC: (CPT 52356; 2019-09-21 12:00)
PROC: (CPT 74420; 2019-09-21 12:00)
PROC: (CPT 50605; 2019-09-21 12:00)
DX: N20.1 Calculus of ureter (principal); N13.30 Unspecified hydronephrosis
CPT/HCPCS: 52356; 12345; 36415; 74018; 74176; 76000; 80048; 80053; 81001; 81025; 82365; 85025; 87086; 87186; 88300; 96365; 96375; 96376; 99282; 99285; C1725; G0378; J0696; J1100; J1885; J2001; J2270; J2405; J2704; J2765; J3010; J3490; J7030

== ENCOUNTER 2019-09-22 19:27 | Emergency (ER) | payer OTHER, SELFPAY ==
[2019-09-22 19:50] VITALS: BP 140/102; PULSE 86; RESP 16; TEMP 37.1; O2SAT 99; BMI 27.4
[2019-09-22 21:17] LABS: Basophils % 0.3 %; Eosinophils % 0.1 %; Hematocrit 41.8 % (37.0-47.0); Hemoglobin 13.2 g/dL (11.5-15.3); Lymphocytes # 2.2 10^3/uL (0.8-4.8); Lymphocytes % 15.4 %; Mean Corpuscular HGB Conc 31.6 g/dL (30.0-36.0); Mean Corpuscular Hemoglobin 27.9 pg (28.0-34.0); Mean Corpuscular Volume 88.4 fL (81-99); Mean Platelet Volume 10.2 fL (7.4-10.4); Monocytes # 0.8 10^3/uL (0.2-0.9); Monocytes % 5.7 %; Neutrophils # 11.2 10^3/uL (1.8-7.7); Neutrophils % 78.2 %; Nucleated Red Blood Cells % 0 %; Platelet Count 363 10^3/cmm (130-400); Red Blood Count 4.73 10^6/uL (4.1-5.3); Red Cell Distribution Width 13.3 % (12.1-15.1); White Blood Count 14.3 10^3/uL (4.0-10.0)
[2019-09-22 21:25] LABS: HCG Qualitative Urine. Negative (Negative)
--- NOTE | 2019-09-22 21:25 | ED_ITS ---
HPI - General Adult General: Chief complaint: General Medical Stated complaint: female urogenital Time Seen by Provider: 09/22/19 20:56 History of Present Illness: HPI narrative: Maryann is a very nice 29-year-old female who comes in complaining of flank pain with nausea and vomiting. The patient had right sided kidney stones/ureteral stones removed by Dr. Thomas 2 days ago. She had the expected amount of pain and discomfort that day but then today she has had more pain and has not had vomiting. She is unable to keep her medications down. She denies any fevers or chills but states that she just does not feel good and she is afraid that if she cannot keep her pain medications down her pain may become out of control. She has a good deal of pain now and does not feel like the hydro-is enough. Associated symptoms: Reports nausea and vomiting; Deny chest pain, confusion, diaphoresis, dyspnea, headache(s), malaise, rash, palpitations or syncope Review of Systems General: Reports: other (negative unless marked) Const: Denies: fever, chills, body aches, fatigue, malaise or diaphoresis Eyes: Denies: change in vision or blurry vision ENMT: Denies: throat pain, painful swallowing, hoarseness, ear pain, ear discharge, Change in hearing or nasal discharge Card: Denies: chest pain, palpitations, irregular heart rhythm, syncope, pre- syncope, shortness of breath on exertion or shortness of breath when lying down Resp: Denies: shortness of breath, productive cough, non-productive cough, wheezing, coughing up blood or chest congestion GI: Reports: nausea and vomiting; Denies: abdominal pain, vomiting blood, coffee grounds in vomit, diarrhea, constipation, cramping, blood in stool or black tarry stool : Reports: flank pain; Denies: painful urination, urinary frequency, urinary urgency, decreased urine ouput, urinary incontinence or blood in urine Musc: Denies: neck pain, back pain, extremity pain, extremity swelling, joint pain, joint swelling, joint warmth or joint stiffness Skin/Breast: Denies: rash, skin tenderness or yellow skin Neuro: Denies: headache, numbness in extremities, weakness in extremities, changes in sensation, lack of coordination, difficulty walking, dizziness, vertigo or confusion Endo: Denies: excessive thirst, tired all the time, cold intolerance, excessive sweating, flushing or hot flashes Duc/Lymph: Denies: easy bruising, easy bleeding, petechiae or enlarged lymph nodes All/Imm: Denies: hives, throat swelling, tongue swelling, facial swelling or acute wheezing PFSH ED PFSH: Medical History Kidney stones Surgical History History of tubal ligation Family History Denies family history of Anesthesia complication Social History (Updated 09/20/19 @ 17:35 by Juan Thomas MD) Smoking and tobacco status: never smoked Marital status: Number of children: 3 Current occupational status: employed Current occupation: [employer] Female Reproductive History: Date of last menstrual period: 09/10/19 Physical Exam Const: COMMON NORMALS: no apparent distress, oriented x3, no limitations, healthy appearing and well nourished EXAM LIMITATIONS: no altered mental status GENERAL APPEARANCE: cooperative, well kempt and well developed ORIENTATION/CONSCIOUSNESS: Yes awake HENMT: COMMON NORMALS: normocephalic, head/scalp atraumatic, hearing grossly normal bilaterally, external ears normal, EAC's normal, external nose normal and moist oral mucous membranes HEAD & SCALP: normal to inspection, normocephalic and atraumatic FACE & SINUS: normal facial exam and face symmetric NOSE: external nose normal and nares normal EXTERNAL EAR: Yes external ears normal EXTERNAL AUDITORY CANAL: EAC's normal MOUTH: oral and palatal mucosa normal and tongue normal Eye: COMMON NORMALS: PERRL, EOMs intact bilaterally, conjunctivae normal and no scleral icterus GENERAL EYE: normal appearance of both eyes and normal light reflex CONJUNCTIVA: Yes conjunctivae normal SCLERA: sclerae normal CORNEA: Yes corneas normal PUPIL: Yes PERRL DIRECT OPHTHALMOSCOPY: Yes normal light reflex Neck/C-Spine: COMMON NORMALS: full ROM, no lymphadenopathy, supple, no meningeal signs and no JVD GENERAL: Yes normal visual inspection and Yes trachea midline CERVICAL SPINE: Yes cervical ROM normal Chest: COMMONS NORMALS: inspection of chest normal and palpation of chest normal Resp: COMMON NORMALS: normal respiratory effort, no retractions, no use of accessory muscles and clear to auscultation bilaterally EFFORT & INSPECTION: Yes able to speak in complete sentences AUSCULTATION: clear to auscultation bilaterally Cardio: COMMON NORMALS: no JVD, regular rate, regular rhythm, S1 normal heart sound, S2 normal heart sound, no gallops, no clicks, no murmurs and no rub JUGULAR VENOUS DISTENTION: no JVD RATE: regular rate RHYTHM: regular rhythm HEART SOUNDS: S1 normal and S2 normal GI: COMMON NORMALS: soft to palpation, non-tender, no hepatosplenomegaly and no masses INSPECTION: Yes normal to inspection PALPATION: Yes soft and Yes no hepatosplenomegaly : COMMON NORMALS: Yes no CVA tenderness BLADDER/KIDNEY EXAM: Yes no CVA tenderness Back/Pelvis: COMMON NORMALS: no CVA tenderness, thoracic and lumbar spine normal to inspection, no thoracic nor lumbar tenderness and thoraco-lumbar ROM normal Extremity: COMMON NORMALS: normal to inspection, full ROM, normal capillary refill, no joint enlargement, no clubbing, cyanosis or edema and no calf tenderness Neuro: COMMON NORMALS: oriented x3, CN's II-XII intact bilaterally, moves all extremities, no focal motor deficits and no sensory deficits noted MENINGEAL SIGNS: Yes no meningeal signs Psych: COMMON NORMALS: mental status grossly normal, thought process normal, cooperative, affect normal, speech normal and activity/motor behavior normal APPEARANCE: Yes well kempt SPEECH: Yes normal speech THOUGHT PROCESS: normal thought process Skin: COMMON NORMALS: no rashes or lesions noted, skin turgor normal, no jaundice, no petechiae and no mottling GENERAL SKIN EXAM: no rashes or lesions noted and turgor normal Course Vital Signs: Vital signs: Vital Signs Temperature 98.8 F 09/22/19 19:50 Pulse Rate 90 09/22/19 21:54 Respiratory Rate 16 09/22/19 21:54 Blood Pressure 137/89 09/22/19 21:54 Pulse Oximetry 100 09/22/19 21:54 MDM - General Adult MDM Narrative: Medical decision making narrative: Maryann is a nice 29-year-old female who comes in complaining of uncontrolled pain and vomiting 2 days after a urologic procedure. In review of the procedure and discussion of the case with Dr. Thomas there are no further stones present. The ultrasound of her gallbladder was performed secondary to her elevated liver enzymes and right-sided pain but this proved to be unremarkable. Patient's hydronephrosis is gone from severe to moderate after her stenting. She does have a slightly elevated white count but she has no fever and her lactic acid is normal. This could just be a stress response from vomiting. The patient is feeling tremendously better after IV fluids, morphine and Zofran. She is tolerating orals here. I will give her Percocet to take into the hydrocodone says she does not feel those were taking care of her pain. I checked her urine culture from previous and it was growing E. coli that was sensitive to Cipro. Patient was given 1 extra dose of Rocephin here and she is feeling much better now and she is ready to go home. She agrees to call Dr. Thomas's office in the morning to discuss things with him as he desires. She has no questions or concerns but she does agree to return to the hospital if her symptoms worsen or change. Lab Data: Attestation: I reviewed the patient's lab results. Labs: Lab Results 09/22/19 09/22/19 09/22/19 Range/Units 21:00 21:00 21:04 WBC 14.3 H (4.0-10.0) 10^3/ uL RBC 4.73 (4.1-5.3) 10^6/u L Hgb 13.2 (11.5-15.3) g/dL Hct 41.8 (37.0-47.0) % MCV 88.4 (81-99) fL MCH 27.9 L (28.0-34.0) pg MCHC 31.6 (30.0-36.0) g/dL RDW 13.3 (12.1-15.1) % Plt Count 363 (130-400) 10^3/c mm MPV 10.2 (7.4-10.4) fL Neut % (Auto) 78.2 % Lymph % (Auto) 15.4 % Maverick % (Auto) 5.7 % Eos % (Auto) 0.1 % Baso % (Auto) 0.3 % Neut # (Auto) 11.2 H (1.8-7.7) 10^3/u L Lymph # (Auto) 2.2 (0.8-4.8) 10^3/u L Maverick # (Auto) 0.8 (0.2-0.9) 10^3/u L Eos # (Auto) 0.0 (0.0-0.8) 10^3/u L Baso # (Auto) 0.0 (0.0-0.1) 10^3/u L Nucleated RBC % (a uto) 0 % Nucleated RBCs # 0.0 /100WBC Sodium (136-145) mmol/L Potassium (3.5-5.1) mmol/L Chloride (98-107) mmol/L Carbon Dioxide (22-29) mmol/L Anion Gap (5-19) BUN (6-20) mg/dL Creatinine (0.5-0.9) mg/dL GFR Calculation (90-130) mL/min Glucose (65-115) mg/dL Calculated Osmolal ity (285-295) mOsm/k g Lactic Acid (0.5-2.2) mmol/L Calcium (8.5-10.5) mg/dL Magnesium (1.7-2.3) mg/dL Total Bilirubin (0.15-1.2) mg/dL AST (0-32) U/L ALT (0-33) U/L Alkaline Phosphata se (35-105) IU/L Total Protein (6.6-8.7) g/dL Albumin (3.5-5.2) g/dL Globulin (1.3-4.6) g/dL HCG, Qual Negative (Negative) Urine Color Yellow (Yellow) Urine Appearance Cloudy (CLEAR) Urine pH 6 (5-7) Ur Specific Gravit y 1.015 (1.005-1.030) Urine Protein 1+ H (Negative) Urine Glucose (UA) Norm (Normal) Urine Ketones 1+ H (Negative) Urine Blood 3+ H (Negative) Urine Nitrate Negative (Negative) Urine Bilirubin Neg (NEGATIVE) Urine Urobilinogen Norm (Negative) mg/dL Ur Leukocyte Gwen ase 1+ H (Negative) Urine RBC 25-40 H (0-2) /hpf Urine WBC 10-15 H (0-5) /hpf Ur Squamous Epith Cells 0-4 H (0-5) Urine Bacteria 1+ H (NONE) 09/22/19 09/22/19 Range/Units 21:04 21:28 WBC (4.0-10.0) 10^3/ uL RBC (4.1-5.3) 10^6/u L Hgb (11.5-15.3) g/dL Hct (37.0-47.0) % MCV (81-99) fL MCH (28.0-34.0) pg MCHC (30.0-36.0) g/dL RDW (12.1-15.1) % Plt Count (130-400) 10^3/c mm MPV (7.4-10.4) fL Neut % (Auto) % Lymph % (Auto) % Maverick % (Auto) % Eos % (Auto) % Baso % (Auto) % Neut # (Auto) (1.8-7.7) 10^3/u L Lymph # (Auto) (0.8-4.8) 10^3/u L Maverick # (Auto) (0.2-0.9) 10^3/u L Eos # (Auto) (0.0-0.8) 10^3/u L Baso # (Auto) (0.0-0.1) 10^3/u L Nucleated RBC % (a uto) % Nucleated RBCs # /100WBC Sodium 138 (136-145) mmol/L Potassium 3.6 (3.5-5.1) mmol/L Chloride 100 (98-107) mmol/L Carbon Dioxide 26 (22-29) mmol/L Anion Gap 15.6 (5-19) BUN 4 L (6-20) mg/dL Creatinine 0.5 (0.5-0.9) mg/dL GFR Calculation 146.9 H (90-130) mL/min Glucose 111 (65-115) mg/dL Calculated Osmolal ity 282 L (285-295) mOsm/k g Lactic Acid 0.8 (0.5-2.2) mmol/L Calcium 8.9 (8.5-10.5) mg/dL Magnesium 2.1 (1.7-2.3) mg/dL Total Bilirubin 0.3 (0.15-1.2) mg/dL AST 51 H (0-32) U/L ALT 89 H (0-33) U/L Alkaline Phosphata se 84 (35-105) IU/L Total Protein 7.2 (6.6-8.7) g/dL Albumin 4.6 (3.5-5.2) g/dL Globulin 2.6 (1.3-4.6) g/dL HCG, Qual (Negative) Urine Color (Yellow) Urine Appearance (CLEAR) Urine pH (5-7) Ur Specific Gravit y (1.005-1.030) Urine Protein (Negative) Urine Glucose (UA) (Normal) Urine Ketones (Negative) Urine Blood (Negative) Urine Nitrate (Negative) Urine Bilirubin (NEGATIVE) Urine Urobilinogen (Negative) mg/dL Ur Leukocyte Gwen ase (Negative) Urine RBC (0-2) /hpf Urine WBC (0-5) /hpf Ur Squamous Epith Cells (0-5) Urine Bacteria (NONE) Imaging Data^: US: Radiologist's impression: Ultrasound gallbladder, tech interpretation -no acute findings of the liver, no acute findings in the gallbladder. All findings unremarkable. Ultrasound renal, tech interpretation -moderate right hydronephrosis improved from previous. Normal left kidney and ureter. No free fluid. No other acute abnormalities. Discharge Plan Discharge Patient Disposition: Home, Self-Care Clinical Impression: Kidney stones UTI (urinary tract infection) Qualifiers: Urinary tract infection type: site unspecified Hematuria presence: with hematuria Qualified Code(s): N39.0 - Urinary tract infection, site not specified Condition: Stable Prescriptions: New Percocet 5-325 mg tablet 1 tab PO Q6H PRN (Reason: pain) Qty: 14 RF: 0 Zofran 4 mg tablet 4 mg PO Q6H PRN (Reason: nausea and vomiting) Qty: 20 RF: 0 promethazine 25 mg tablet 25 mg PO Q4H PRN (Reason: nausea and vomiting) Qty: 20 RF: 0 No Action Searchlight 5-325 mg tablet 1 tab PO Q8H PRN (Reason: pain) Qty: 14 RF: 0 Cipro 500 mg tablet 500 mg PO Q12H Qty: 20 RF: 1 Discharge Orders: Discharge Order (Routine); Ordered 09/22/19 Ordered By: Rosi Carolina Referrals: Juan Thomas MD [Physician] - 1-3 days (Call Dr. Thomas's office first thing in the morning as he wants to know how you are feeling and to discuss the plan of your follow-up with him.) Discharge Diet: Advance as tolerated Discharge Activity: Resume usual activity Patient Instructions: Urinary Tract Infection in Women (ED) Activity Restrictions/Additional Instructions: Please return to the ER immediately for any of the signs or symptoms listed on your discharge instruction sheets, worsening/changing of your symptoms, you are not getting better as quickly as expected, or for ANY other cause or concerns. Take the Percocet I have prescribed you for pain. Do not take the hydrocodone's while taking the Percocet. If you feel that the hydrocodone does help more you can resume taking those but stop the Percocet. Did not take the Phenergan and Zofran at the same time but alternate as needed every 4 hours. Return to the ER for fever, return of your pain, vomiting, or for any other cause for concern. Be certain to call Dr. Thomas's office first thing in the morning to discuss your need for follow-up with him. Coding Level of Care Code ED Telephone Advice Nurse for Dana Fwkostas Exam Comprehensive
[2019-09-22 21:28] VITALS: BP 151/103; PULSE 80; RESP 20; O2SAT 100
[2019-09-22 21:32] LABS: Alanine Aminotransferase 89 U/L (0-33); Albumin Level 4.6 g/dL (3.5-5.2); Alkaline Phosphatase 84 IU/L (35-105); Anion Gap 15.6 (5-19); Aspartate Amino Transferase 51 U/L (0-32); Blood Urea Nitrogen 4 mg/dL (6-20); Calcium 8.9 mg/dL (8.5-10.5); Carbon Dioxide 26 mmol/L (22-29); Chloride 100 mmol/L (98-107); Globulin 2.6 g/dL (1.3-4.6); Glomerular Filtration Rate 146.9 mL/min (90-130); Glucose 111 mg/dL (65-115); Magnesium 2.1 mg/dL (1.7-2.3); Osmolality Calculated 282 mOsm/kg (285-295); Potassium 3.6 mmol/L (3.5-5.1); Sodium 138 mmol/L (136-145); Total Bilirubin 0.3 mg/dL (0.15-1.2); Total Protein 7.2 g/dL (6.6-8.7)
--- NOTE | 2019-09-22 21:37 | US_ITS ---
WS: [id number] Complete ABDOMINAL ULTRASOUND HISTORY: Flank Pain COMPARISON: 07/23/2008 Liver: 13.1 cm in length. Liver is normal size and echogenicity with no mass or intrahepatic dilatati on. Gallbladder: Normally distended with no gallstones, wall thickening or pericholecystic fluid. Gallbladder wall thickness: 0.2 cm. Pancreas: Normal size and echogenicity. CBD: 0.3 cm. Right kidney: 12.6 cm x 6.9 cm x 7.1 cm. Moderate hydronephrosis of the RIGHT kidney. No cortical th inning. Left kidney: 12.2 cm x 5.0 cm x 4.3 cm. No mass, cortical thickening or hydronephrosis. Spleen: Normal size and echogenicity. Abdominal aorta and IVC are within normal limits. No ascites. US/US abdomen complete* [id number] IMPRESSION: 1. Moderate hydronephrosis RIGHT kidney. Distal obstructing stone has been pre viously described. 2. Otherwise negative.
[2019-09-22] MEDS: ondansetron 2 mg/ML SDV 2 mL 4 MG IVP (21:43)
[2019-09-22] MEDS: morphine 4 mg/mL SDV 1 mL IVP (21:43)
[2019-09-22] MEDS: sodium chloride 0.9% 2,313.33 ML 2313.3 ML IV (21:51)
[2019-09-22 21:54] VITALS: BP 137/89; PULSE 90; RESP 16; O2SAT 100
[2019-09-22 21:54] LABS: Lactic Sepsis W/Reflex 0.8 mmol/L (0.5-2.2)
[2019-09-22 22:18] LABS: Add Urine Microscopic? YES; Bilirubin Urine Neg (NEGATIVE); Blood Urine 3+ (Negative); Glucose Urine UA Norm (Normal); Ketones Urine 1+ (Negative); Leukocyte Esterase Urine 1+ (Negative); Nitrate Urine Negative (Negative); Protein Urine 1+ (Negative); Specific Gravity, Urine 1.015 (1.005-1.030); Urine Appearance Cloudy (CLEAR); Urine Color Yellow (Yellow); Urobilinogen Urine Norm (Negative); pH Urine 6 (5-7)
[2019-09-22 22:19] LABS: Add Urine Culture? Yes; Bacteria Urine 1+; RBC Urine 25-40 /hpf (0-2); Squamous Epithelial Cell Urine 0-4 (0-5)
[2019-09-22] MEDS: cefTRIAXone 1,000 MG in sodium chloride 0.9% (plus) 50 ML 100 MG IV (22:49)
[2019-09-22] MEDS: ketorolac 30 mg/mL INJ 10 MG IVP (22:49)
[2019-09-22] MEDS: ondansetron 4 MG Tablet PO (23:32)
[2019-09-22] MEDS: oxyCODONE-APAP 5-325 mg Tablet 2 TAB PO (23:32)
[2019-09-22 23:37] VITALS: BP 135/87; PULSE 88; RESP 16; O2SAT 100
--- NOTE | 2019-09-23 13:08 | DCPLANNER ---
assistant property manager had message to schedule a follow up appointment for patient with Dr. Thomas. assistant property manager called the office of Dr. Thomas, spoke with Linda. assistant property manager gave clinic patients information, was told that information would be printed and given to Ruchi for review. Clinic will call patient with appointment information. assistant property manager will call for appointment information.
--- NOTE | 2019-09-25 09:45 | DCPLANNER ---
Patient has a follow up appointment scheduled for , October 01, 2019 at 8:[address] Zuniga office. Clinic will call patient with appointment information.
--- NOTE | 2019-10-29 14:14 | DCPLANNER ---
Patient did attend the appointment scheduled for 10.01.[address] Thomas.
== END 2019-09-22 23:38 | disposition home or self-care (01) ==
PROVIDERS: Emergency Medicine; Emergency Provider Emergency Medicine
DX: N20.0 Calculus of kidney (principal); N39.0 Urinary tract infection, site not specified; R31.9 Hematuria, unspecified; Z87.442 Personal history of urinary calculi
CPT/HCPCS: 12345; 76700; 80053; 81001; 81025; 83605; 83735; 85025; 87086; 96365; 96375; 99283; 99284; J0131; J0696; J1885; J2270; J2405; J7030; Q0162

== ENCOUNTER 2019-10-01 07:28 | Outpatient (CLI) | payer OTHER, SELFPAY ==
--- NOTE | 2019-10-01 07:15 | XRR_ITS ---
PROCEDURE INFORMATION: Exam: XR Abdomen, 1 View Exam date and time: 10/01/2019 7:35 AM Age: 29 years old Clinical indication: Condition or disease; Kidney or ureter condition; Calculus (stone) in kidney; Prior surgery; Surgery date: <1 month; Surgery type: Stent; Additional info: Kidney stone TECHNIQUE: Imaging protocol: XR of the abdomen. Views: Frontal supine view of the abdomen. 1 View. COMPARISON: CR XR KUB [id number] 09/21/2019 6:26 AM FINDINGS: Gastrointestinal tract: No dilated gas-filled loops of bowel. Organs: Previously demonstrated distal right ureteral calculi are no longer present. No radiopaque renal or ureteral calculi noted at this time. Bones/joints: No acute osseous abnormality. Soft tissues: No acute soft tissue abnormality. XR/XR KUB [id number] IMPRESSION: No radiopaque renal or ureteral calculi.
== END 2019-10-01 07:29 | disposition home or self-care (01) ==
LOC: RAD 07:31
PROVIDERS: PCP Family Medicine; Visit Provider Nurse Practitioner Family
DX: N20.0 Calculus of kidney (principal)
CPT/HCPCS: 74018; 81001